=== PATIENT | male | born 1965 | race Caucasian/White ===

== ENCOUNTER 2023-05-04 22:31 | Emergency (ER) | payer MEDICARE, SELFPAY ==
[2023-05-04 22:34] VITALS: BP 144/78
[2023-05-04 22:39] VITALS: BP 144/78
[2023-05-04] MEDS: KEPPRA 1500 MG IV (22:57)
[2023-05-04 22:59] LABS: Hemoglobin 12.3 g/dL (13.0-18.0); Mean Corp Hgb Conc. 35.1 g/dL (33.0-37.0); Mean Corpuscular Hgb 33.8 pg (27.0-31.0); Mean Corpuscular Volume 96.2 fL (80.0-94.0); Mean Platelet Volume 8.8 fL (7.4-10.4); Platelet Count 198 10^3/uL (130-400); Red Blood Cell Count 3.64 10^6/uL (4.70-6.10); Red Cell Dist. Width 14.1 % (11.5-14.5); White Blood Cell Count 7.8 10^3/uL (4.8-10.8)
[2023-05-04 23:00] VITALS: BP 132/60
--- NOTE | 2023-05-04 23:15 | ED.GENMED ---
History of Present Illness
General
Chief Complaint: Seizure
Source: patient
Exam Limitations: none
Time Seen by Provider: 05/04/23 22:45
Nursing documentation reviewed up to this point in time: agreed with
Travel History
Have you had any contact with someone who has COVID-19?: No
Do you have any symptoms of coronavirus? Fever > 100 degrees, chills, cough, shortness of breath, sore throat, loss of taste or smell, muscle aches, or headache?: No
History of Present Illness
History of Present Illness:
57-year-old male ESRD prior seizure admits to being noncompliant with his seizure meds presents with 35-second to 45-second witnessed seizure with urinary incontinence Valium by EMS here he is postictal wants to go home tells me he drives despite
being told not to drive he got a waiver from his PCP, tells me if we take his license he will continue to drive he begrudgingly will take some seizure meds here, will also do some blood work had no fever no headache no falls he believes that they
take too much fluid off hemodialysis
Past History
Past History
ED Past Medical History: CHF, HTN, Hypercholesterolemia, Valvular disease and Other (ESRD)
ED Past Surgical History: Appendectomy and Cardiac (Thoracic AA Repair; aortic valve replacement, aortic root repair and replacement)
Social History
Tobacco: Former smoker
Alcohol: Occasional
Drug: None
Personal:
Living: with family
Employment: Employed
Family History
Family History: Early CAD (father with CA at 50)
Review of Systems
Review of Systems
All Other Systems: Not applicable
Constitutional: Denies fever or fatigue
Respiratory: Reports no symptoms
Cardiac: Reports no symptoms
ABD/GI: Reports no symptoms
: Reports no symptoms
Musculoskeletal: Reports no symptoms
Skin: Reports no symptoms
Neurological: Reports other (Seizure)
Endocrine: Reports no symptoms
Hematologic/Lymphatic: Reports no symptoms
Phy Exam
Physical Exam
Physical Exam:
Physical Exam
General: 57 male postictal slightly confrontational but redirectable
Neck: No photophobia no tongue
Heart: Regular
Lungs: no acute respiratory distress. clear bilaterally
Neuro: alert and oriented. no focal neurological deficits moves all extremities
Skin: no rash
Psychiatric: Confrontational, redirectable more or less cooperative
Extremities: no edema.
Course
Orders/Labs/Results
Orders:
Orders
05/04/23 22:53
Levetiracetam Injectable [Keppra] 1,500 mg IV NOW STA
05/04/23 22:54
Complete Blood Count/No Diff Urgent
Comprehensive Metabolic Panel Urgent
Abnormal Lab Results
05/04/23
22:54
RBC 3.64 L 10^6/uL
(4.70-6.10)
Hgb 12.3 L g/dL
(13.0-18.0)
Hct 35.0 L %
(39.0-52.0)
MCV 96.2 H fL
(80.0-94.0)
MCH 33.8 H pg
(27.0-31.0)
Chloride 93 L mmol/L
(98-107)
Carbon Dioxide 34 H mmol/L
(22-30)
BUN 30 H mg/dl
(9-20)
Creatinine 6.9 H* mg/dL
(0.7-1.3)
Glucose 119 H mg/dl
(70-99)
05/04/23 22:54
05/04/23 22:54
Vital Signs
Initial and Last Documented VS:
Initial Vital Signs
Pulse Resp BP
107 23 144/78
05/04/23 22:34 05/04/23 22:34 05/04/23 22:34
Last Documented Vital Signs
Temp Pulse Resp BP Pulse Ox
98.9 F 94 19 132/60 92
05/04/23 22:39 05/04/23 23:45 05/04/23 23:30 05/04/23 23:00 05/04/23 23:45
MDM/Problems Addressed
Differential Diagnosis Includes:
Seizure disorder in a patient with known seizure med noncompliance electrolyte abnormality no fever mental status is clear no focality neuroexam
MDM/Problems Addressed:
Seizure
Chronic conditions affecting care:
Seizure ESRD
Acute Exacerbation and/or Progression of Chronic Illness:
Seizure ESRD
*Critical Care Note
Total Time (30-74mins, 75-104mins- exclusive of procedures): Not Applicable
Update Note
Update Note:
12:30 AM patient resting comfortably no further seizure activity labs are noted patient is convinced that his seizures are related to fluid coming off the dialysis
Long conversation with patient about importance of taking his antiepileptic meds, he will consider his is with him she is trying encouraged him as well states he has at home, patient told that he should not be driving,
ED Attending Note
-
Portions of this chart may have been created with voice recognition software.� Occasional wrong word or��sound alike� substitutions may have occurred due to the inherent limitations of voice recognition software.
Discharge Plan
Departure
Patient Disposition: Home (Routine Discharge)
Date of Disposition: 05/05/23
Time of Disposition: 00:28
Patient with high blood pressure during this ER visit?: No
Condition: Good
Discharge Problem:
Seizure
Instructions: Seizures, Adult (DC)
Prescriptions:
No Action
famotidine [Pepcid AC] 10 MG tablet
10 mg PO DAILY PRN (Reason: Gastrointestinal issue)
aspirin 81 MG tablet,delayed release (DR/EC)
81 mg PO DAILY
metoprolol succinate 25 MG tablet extended release 24 hr
25 mg PO DAILY 0RF
furosemide 40 mg Tablet
40 mg PO SUTUTHSA
warfarin 7.5 mg tablet
7 mg PO QPM
sevelamer carbonate 800 mg tablet
1,600 mg PO MEALS
levetiracetam [Keppra] 500 mg tablet
500 mg PO BID Qty: 60 0RF
rosuvastatin 10 mg tablet
20 mg PO QPM
Referrals:
Jose Clay MD [Family Provider] - Next open appointment
Activity Restrictions/Additional Instructions:
Take your seizure meds Keppra as previously prescribed
Interventions
Interventions:
*Risk Screen - Suicide Last Done: 05/04/23 22:39
*General Assessment Last Done: 05/04/23 22:39
*Neglect/Abuse Screening Last Done: 05/04/23 22:39
ED- Fall Risk Assessment Last Done: 05/04/23 22:43
*ED COVID-19 Vaccine History Last Done: 05/04/23 22:39
ED- Cardiac Assessment Last Done: 05/04/23 23:24
ED- Neurological Assessment Last Done: 05/04/23 23:24
ED- Pulmonary Assessment Last Done: 05/04/23 23:24
[2023-05-04 23:29] LABS: ALT (SGPT) 32 U/L (0-50); AST (SGOT) 38 U/L (17-59); Albumin 4.6 g/dl (3.5-5.0); Alkaline Phosphatase 98 U/L (38-126); Blood Urea Nitrogen 30 mg/dl (9-20); Calcium 9.4 mg/dl (8.4-10.2); Carbon Dioxide 34 mmol/L (22-30); Estimated Creatinine Clearance 15 ml/min; Glucose 119 mg/dl (70-99); Total Bilirubin 0.7 mg/dl (0.2-1.3); Total Protein 7.3 g/dl (6.3-8.2); eGFR 8.65
[2023-05-04 23:41] LABS: Chloride 93 mmol/L (98-107); Potassium 4.1 mmol/L (3.5-5.1); Sodium 135 mmol/L (135-145)
[2023-05-05] VITALS: BP 130/91
[2023-05-05 00:33] VITALS: BP 123/81
== END 2023-05-05 00:49 | disposition home or self-care (01) ==
LOC: EMR 22:31
PROVIDERS: EMERGENCY PHYSICIAN Emergency Medicine; FAMILY PHYSICIAN Family Medicine
DX: G40.909 Epilepsy, unspecified, not intractable, without status epilepticus (principal); R32 Unspecified urinary incontinence; I13.2 Hypertensive heart and chronic kidney disease with heart failure and with stage 5 chronic kidney disease, or end stage renal disease; I50.9 Heart failure, unspecified; E87.8 Other disorders of electrolyte and fluid balance, not elsewhere classified; N18.6 End stage renal disease; Z99.2 Dependence on renal dialysis; Z91.148 Patient's other noncompliance with medication regimen for other reason; E78.00 Pure hypercholesterolemia, unspecified; Z95.2 Presence of prosthetic heart valve; Z87.891 Personal history of nicotine dependence; Z79.82 Long term (current) use of aspirin; Z79.01 Long term (current) use of anticoagulants
CPT/HCPCS: 99284; 96374; 80053; 85027

== ENCOUNTER → 2023-05-26 13:24 | Outpatient (REF) | payer MEDICARE, SELFPAY | LOC: HWRCS 13:24 | PROVIDERS: ATTENDING PHYSICIAN Nurse Practitioner Adult Health | DX: I45.10 Unspecified right bundle-branch block (principal) | CPT/HCPCS: 93306 ==

== ENCOUNTER → 2023-08-13 12:14 | Outpatient (REF) | payer MEDICARE, SELFPAY | LOC: DHCBC/DCA 12:14 | PROVIDERS: ATTENDING PHYSICIAN Internal Medicine Cardiovascular Disease; FAMILY PHYSICIAN Family Medicine | DX: Z01.810 Encounter for preprocedural cardiovascular examination (principal); R94.31 Abnormal electrocardiogram [ECG] [EKG] | CPT/HCPCS: 78452; 93017; A9500; J2785 ==

== ENCOUNTER 2024-08-18 19:52 | Emergency (ER) | payer MEDICARE, SELFPAY ==
[2024-08-18 20:01] VITALS: BP 132/90
[2024-08-18 20:27] LABS: % Immature Granulocytes 0.3 % (0-0.5); % Lymphocytes 20.3 % (20.5-51.1); % Monocytes 11.5 % (1.7-9.3); % Neutrophils 63.9 % (42.2-75.2); Absolute Basophils 0.1 10^3/uL (0-0.2); Absolute Eosinophils 0.2 10^3/uL (0-0.7); Absolute Lymphocytes 1.4 10^3/uL (1.2-3.4); Absolute Monocytes 0.8 10^3/uL (0.1-0.6); Absolute Neutrophils 4.5 10^3/uL (1.4-6.5); Hematocrit 35.5 % (39.0-52.0); Hemoglobin 12.3 g/dL (13.0-18.0); Mean Corp Hgb Conc. 34.6 g/dL (33.0-37.0); Mean Corpuscular Hgb 33.5 pg (27.0-31.0); Mean Corpuscular Volume 96.7 fL (80.0-94.0); Mean Platelet Volume 9.7 fL (7.4-10.4); Nucleated Red Blood Cells % 0 % (-); Platelet Count 181 10^3/uL (130-400); Red Blood Cell Count 3.67 10^6/uL (4.70-6.10); Red Cell Dist. Width 14.6 % (11.5-14.5)
[2024-08-18 20:39] LABS: COVID-19 Antigen Negative (Negative)
[2024-08-18 20:47] LABS: NT-proBNP 6580 pg/ml
[2024-08-18 20:54] LABS: ALT (SGPT) 30 U/L (0-50); AST (SGOT) 29 U/L (17-59); Albumin 4.6 g/dl (3.5-5.0); Alkaline Phosphatase 74 U/L (38-126); Blood Urea Nitrogen 53 mg/dl (9-20); Calcium 9.6 mg/dl (8.4-10.2); Carbon Dioxide 30 mmol/L (22-30); Chloride 96 mmol/L (98-107); Glucose 108 mg/dl (70-99); Potassium 3.7 mmol/L (3.5-5.1); Sodium 139 mmol/L (135-145); Total Bilirubin 0.7 mg/dl (0.2-1.3); Total Protein 6.8 g/dl (6.3-8.2)
[2024-08-18 21:42] VITALS: BMI 38.9
[2024-08-18 21:45] VITALS: BP 141/78
[2024-08-18 22:00] VITALS: BP 135/88
[2024-08-18] MEDS: AMOXIL 500 MG PO (22:14)
[2024-08-18] MEDS: DUONEB 3 ML INH (22:14)
--- NOTE | 2024-08-18 22:21 | ED.GENMED ---
History of Present Illness
General
Chief Complaint: Breathing Problem
Source: patient, family, previous radiology exam and previous hospital records
Exam Limitations: none
Time Seen by Provider: 08/18/24 21:16
Nursing documentation reviewed up to this point in time: agreed with
History of Present Illness
History of Present Illness:
58-year-old male multiple chronic medical conditions most notably end-stage renal disease on home diet hemodialysis, 4 days a week he has had some sinus congestion thought he had the flu some cough, no productive sputum no documented fever no
rigors, believes his dry weight may be up a little bit, he does still make urine, no sick contacts, states at home dialysis which has been on for few months has been tough for than 3 days a week hemodialysis, no leg edema,
Past History
Past History
ED Past Medical History: CHF, HTN, Hypercholesterolemia, Valvular disease and Other (ESRD)
ED Past Surgical History: Appendectomy and Cardiac (Thoracic AA Repair; aortic valve replacement, aortic root repair and replacement)
Social History
Tobacco: Former smoker
Alcohol: Occasional
Drug: None
Personal:
Living: with family
Employment: Employed
Family History
Family History: Early CAD (father with AL at 50)
Review of Systems
Review of Systems
All Other Systems: ROS reviewed and negative except as documented in HPI and ROS
Constitutional: Reports fatigue; Denies fever
EENT: Reports runny nose and other (Congestion)
Respiratory: Reports cough and trouble breathing
Cardiac: Denies chest pain
ABD/GI: Denies abdominal pain
: Reports no symptoms
Musculoskeletal: Reports no symptoms
Neurological: Reports weakness
Hematologic/Lymphatic: Reports no symptoms
Psychiatric: Reports no symptoms
Phy Exam
Physical Exam
Physical Exam:
Physical Exam
General: no apparent distress, not acutely ill
Neck: Nasally voice
Heart: s1/s2 regular rate and rhythm, no murmur. equal radial pulses.
Lungs: Expiratory wheeze
Abdomen: Not tender
Neuro: alert and oriented. no focal neurological deficits
Skin: no rash
Psychiatric: well kept. interactive and cooperative
Extremities: no edema. no calf tenderness
Course
Orders/Labs/Results
Orders:
Orders
08/18/24 20:10
Chest [CR Chest - 2 Views ] Urgent
Comment:
Reason For Exam: SOB
08/18/24 20:19
COVID-19 Antigen Urgent
Source: Nasal Swab
Complete Blood Count/With Diff Urgent
Comprehensive Metabolic Panel Urgent
NT-proBNP Urgent
Influenza A+B Rapid Molecular Urgent
DAV Source: Nasal Swab
Specimen Description:
08/18/24 22:03
Amoxicillin [Amoxil] 500 mg PO NOW STA
Ipratropium/Albuterol Sulfate [Duoneb] 3 ml INH R NOW STA
Abnormal Lab Results
08/18/24
20:19
RBC 3.67 L 10^6/uL
(4.70-6.10)
Hgb 12.3 L g/dL
(13.0-18.0)
Hct 35.5 L %
(39.0-52.0)
MCV 96.7 H fL
(80.0-94.0)
MCH 33.5 H pg
(27.0-31.0)
RDW 14.6 H %
(11.5-14.5)
Absolute Monos (auto) 0.8 H 10^3/uL
(0.1-0.6)
Lymphocytes % 20.3 L %
(20.5-51.1)
Monocytes % 11.5 H %
(1.7-9.3)
Chloride 96 L mmol/L
(98-107)
BUN 53 H mg/dl
(9-20)
Creatinine 8.6 H* mg/dL
(0.7-1.3)
Glucose 108 H mg/dl
(70-99)
08/18/24 20:19
08/18/24 20:19
Vital Signs
Initial and Last Documented VS:
Initial Vital Signs
Temp Pulse Resp BP Pulse Ox
98.7 F 71 18 132/90 95
08/18/24 20:01 08/18/24 20:01 08/18/24 20:01 08/18/24 20:01 08/18/24 20:01
Last Documented Vital Signs
Temp Pulse Resp BP Pulse Ox
98.7 F 66 15 141/78 96
08/18/24 20:01 08/18/24 21:45 08/18/24 21:45 08/18/24 21:45 08/18/24 21:45
MDM/Problems Addressed
Differential Diagnosis Includes:
URI pneumonia viral syndrome doubt PE no dysuria frequent
MDM/Problems Addressed:
Cough congestion
Chronic conditions affecting care: Kidney disease
Acute Exacerbation and/or Progression of Chronic Illness: Neurological disorder
*Radiology
Radiology exam reviewed: radiology read reviewed
*Pulse Oximetry
Patient hypoxic: no
*EKG
Interpreted by ED Provider?: Yes
Interpretation: normal
Comparison EKG: no comparison EKG present
Heart Rate: 78
Rate: normal
Ischemia: non-specific ST changes
*[employer] Interpretation
Rate: normal
Interpretation: normal
Heart Rate: 78
Rhythm: sinus
*Critical Care Note
Total Time (30-74mins, 75-104mins- exclusive of procedures): Not Applicable
Data Reviewed
Review of Other/Old Records Reveals: Labs
Source: patient
ED Attending Note
-
Portions of this chart may have been created with voice recognition software.� Occasional wrong word or��sound alike� substitutions may have occurred due to the inherent limitations of voice recognition software.
Discharge Plan
Departure
Patient Disposition: Home (Routine Discharge)
Date of Disposition: 08/18/24
Time of Disposition: 22:19
Patient with high blood pressure during this ER visit?: No
Condition: Good
Discharge Problem:
SOB (shortness of breath), Acute bronchitis
Instructions: Acute Bronchitis, Adult (DC), Shortness of Breath (Dyspnea) (DC)
Prescriptions:
New
amoxicillin 500 mg capsule
500 mg PO Q8H Qty: 30 0RF
albuterol sulfate 90 mcg/actuation HFA aerosol inhaler
2 puff inhalation QID PRN (Reason: shortness of breath or wheezing) Qty: 8.5 0RF
No Action
famotidine [Pepcid AC] 10 MG tablet
10 mg PO DAILYPRN PRN (Reason: Gastrointestinal issue)
aspirin 81 MG tablet,delayed release (DR/EC)
81 mg PO DAILY
furosemide 40 mg Tablet
40 mg PO DAILY
sevelamer carbonate 800 mg tablet
1,600 mg PO MEALS
levetiracetam [Keppra] 500 mg tablet
500 mg PO BID Qty: 60 0RF
calcitriol 0.5 mcg Capsule
0.5 mcg PO DAILY
warfarin 2 mg Tablet
8 mg PO QPM
metoprolol succinate [Toprol XL] 25 mg Tablet Extended Release 24 Hr
12.5 mg PO SUMOWEFR@1900
cinacalcet 30 mg Tablet
30 mg PO QPM
metoprolol succinate 25 MG tablet extended release 24 hr
12.5 mg PO TUTHSA@0800
Referrals:
Jose Clay MD [Family Provider] - Next open appointment
Leoncio Crews DO [Active] - Next open appointment
Interventions
Interventions:
*Risk Screen - Suicide Last Done: 08/18/24 20:01
*General Assessment Last Done: 08/18/24 20:01
*Neglect/Abuse Screening Last Done: 08/18/24 20:01
*ED- Fall Risk Assessment Last Done: 08/18/24 20:01
*ED COVID-19 Vaccine History Last Done: 08/18/24 20:01
ED- Cardiac Assessment Last Done: 08/18/24 21:51
ED- Pulmonary Assessment Last Done: 08/18/24 21:51
Discharge Date and Time
Print Language: GUINEAN
== END 2024-08-18 22:49 | disposition home or self-care (01) ==
LOC: EMR 19:52
PROVIDERS: EMERGENCY PHYSICIAN Emergency Medicine; FAMILY PHYSICIAN Family Medicine
DX: J20.9 Acute bronchitis, unspecified (principal); I13.2 Hypertensive heart and chronic kidney disease with heart failure and with stage 5 chronic kidney disease, or end stage renal disease; I50.9 Heart failure, unspecified; N18.6 End stage renal disease; Z99.2 Dependence on renal dialysis; E78.00 Pure hypercholesterolemia, unspecified; Z87.891 Personal history of nicotine dependence; Z95.2 Presence of prosthetic heart valve; Z90.49 Acquired absence of other specified parts of digestive tract; Z11.52 Encounter for screening for COVID-19
CPT/HCPCS: 94640; 99285; 71046; 80053; 83880; 85025; 87502; 87811; 93005

== ENCOUNTER 2024-10-13 16:50 | Emergency (ER) | payer MEDICARE, SELFPAY ==
[2024-10-13] VITALS (9 sets, daily range): BP systolic 97–138; BP diastolic 65–94; PULSE 75–97; BMI 36.9
[2024-10-13 18:14] LABS: Hematocrit 36.4 % (39.0-52.0); Hemoglobin 12.2 g/dL (13.0-18.0); Mean Corp Hgb Conc. 33.5 g/dL (33.0-37.0); Mean Corpuscular Volume 98.9 fL (80.0-94.0); Nucleated Red Blood Cells % 0 % (-); Platelet Count 183 10^3/uL (130-400); Red Cell Dist. Width 14.0 % (11.5-14.5)
[2024-10-13 18:48] LABS: Troponin I 0.055 ng/ml
[2024-10-13 18:49] LABS: ALT (SGPT) 22 U/L (0-50); AST (SGOT) 22 U/L (17-59); Albumin 4.5 g/dl (3.5-5.0); Alkaline Phosphatase 66 U/L (38-126); Blood Urea Nitrogen 37 mg/dl (9-20); Calcium 9.8 mg/dl (8.4-10.2); Carbon Dioxide 29 mmol/L (22-30); Chloride 101 mmol/L (98-107); Estimated Creatinine Clearance 13 ml/min; Glucose 85 mg/dl (70-99); Potassium 3.8 mmol/L (3.5-5.1); Sodium 139 mmol/L (135-145); Total Protein 6.9 g/dl (6.3-8.2); eGFR 6.84
[2024-10-13] MEDS: NSS 250 IV (19:18)
[2024-10-13] MEDS: TYLENOL 1000 MG PO (19:36)
--- NOTE | 2024-10-13 21:53 | ED.GENMED ---
History of Present Illness
General
Chief Complaint: Dizziness
Source: patient
Exam Limitations: none
Time Seen by Provider: 10/13/24 17:50
Nursing documentation reviewed up to this point in time: agreed with
History of Present Illness
History of Present Illness:
Pt with sig. medical history, including ESRD on HD (M,W,F), presents to ED secondary to recurrent dizziness with shortness of breath which he had been experiencing over the past month. Pt has been evaluated by multiple physicians and stress echo
test has been ordered for next month. Today, patient states that he had been up since 4am and did quite a bit of physically exertional activities without having had much to eat or drink. And patient is already on fluid restriction due to his renal
disease and CHF. Denies chest pain or palpitations. Denies nausea/vomiting. Denies fever. Denies recent illness. Denies recent travel or surgery. Denies recent change in medications or diet. Pt reports having received full dialysis session
yesterday. In addition, during dialysis session yesterday, his HR was noted to go down as low as 40s-50s. However, at that time, patient states that he did not experience dizziness nor sob.
Past History
Past History
ED Past Medical History: CHF, HTN, Hypercholesterolemia, Valvular disease and Other (ESRD)
ED Past Surgical History: Appendectomy and Cardiac (Thoracic AA Repair; aortic valve replacement, aortic root repair and replacement)
Social History
Tobacco: Former smoker
Alcohol: Occasional
Drug: None
Personal:
Living: with family
Employment: Employed
Family History
Family History: Early CAD (father with [place] at 50)
Review of Systems
Review of Systems
Allergies reviewed?: Yes
All Other Systems: ROS reviewed and negative except as documented in HPI and ROS
Constitutional: Reports no symptoms
Respiratory: Reports trouble breathing
Cardiac: Reports no symptoms
ABD/GI: Reports no symptoms
Musculoskeletal: Reports no symptoms
Skin: Reports no symptoms
Neurological: Reports dizzy
Phy Exam
Physical Exam
Physical Exam:
General: well nourished male, in no acute distress. afebrile
Heent: nc/at. eomi
Lungs: cta
Heart: rrr. no murmur
Abd: soft and nontender
Neuro: aao x 3. no focal neurological deficit
Skin: no rash
Ext: b/l LE edema, pitting. no calf tenderness
Psych: pleasant and cooperative
Course
Orders/Labs/Results
Orders:
Orders
10/13/24 16:51
Electrocardiogram (*1) Urgent
Reason for Study: Chest Pain
EKG- Treatment ONCE
10/13/24 17:46
Cardiac Monitoring- Treatment ONCE
IV Insert/Care/Rem.- Treatment PRN
10/13/24 18:00
Complete Blood Count/With Diff Urgent
Comprehensive Metabolic Panel Urgent
Pro-BNP [NT-proBNP] Urgent
Troponin I Urgent
10/13/24 18:24
Orthostatic VS- Treatment ONCE
10/13/24 19:04
0.9% Sodium Chloride 250 ml [Nss] 250 ml IV BOLUS
10/13/24 19:31
Acetaminophen [Tylenol] 1,000 mg PO NOW STA
Abnormal Lab Results
10/13/24
18:00
RBC 3.68 L 10^6/uL
(4.70-6.10)
Hgb 12.2 L g/dL
(13.0-18.0)
Hct 36.4 L %
(39.0-52.0)
MCV 98.9 H fL
(80.0-94.0)
MCH 33.2 H pg
(27.0-31.0)
Absolute Monos (auto) 0.7 H 10^3/uL
(0.1-0.6)
Monocytes % 11.5 H %
(1.7-9.3)
BUN 37 H mg/dl
(9-20)
Creatinine 8.3 H* mg/dL
(0.7-1.3)
Troponin I 0.055 H* ng/ml
10/13/24 18:00
10/13/24 18:00
Vital Signs
Initial and Last Documented VS:
Initial Vital Signs
Temp Pulse Resp BP Pulse Ox
98.5 F 64 18 117/65 98
10/13/24 17:01 10/13/24 17:01 10/13/24 17:01 10/13/24 17:01 10/13/24 17:01
Last Documented Vital Signs
Temp Pulse Resp BP Pulse Ox
98.5 F 73 20 103/65 94
10/13/24 17:01 10/13/24 21:45 10/13/24 21:45 10/13/24 21:00 10/13/24 21:54
MDM/Problems Addressed
MDM/Problems Addressed:
Blood work reviewed, including chronically elevated troponin due to CRI, and discussed with patient and his spouse. Despite patient's chronic illness, today's episode appears to be related to overexertion and mild dehydration. As such, patient given
250ml ivf and observed further without any episodes of similar symptoms. Afterwards, pt's orthostatic vital signs checked. Pt also able to ambulate independently with steady gait without any dizziness or sob. Patient requesting to be discharged home
at this time. Informed patient and spouse that he must rest over the weekend minimize any exertional activities along with close f/u with his pmd/leather coverer for continual evaluation and treatment. Pt expressed understanding at time of discharge.
*Pulse Oximetry
SaO2: 94
Oxygen Mode of Delivery: Room air
Patient hypoxic: no
*Critical Care Note
Total Time (30-74mins, 75-104mins- exclusive of procedures): Not Applicable
ED Attending Note
-
Portions of this chart may have been created with voice recognition software.� Occasional wrong word or��sound alike� substitutions may have occurred due to the inherent limitations of voice recognition software.
Discharge Plan
Departure
Patient Disposition: Home (Routine Discharge)
Date of Disposition: 10/13/24
Time of Disposition: 21:55
Patient with high blood pressure during this ER visit?: No
Condition: Good
Discharge Problem:
Dizziness
Instructions: Dizziness
Prescriptions:
No Action
aspirin 81 MG tablet,delayed release (DR/EC)
81 mg PO DAILY
furosemide 40 mg Tablet
40 mg PO DAILY
sevelamer carbonate 800 mg tablet
1,600 mg PO MEALS
levetiracetam [Keppra] 500 mg tablet
500 mg PO BID Qty: 60 0RF
calcitriol 0.5 mcg Capsule
0.5 mcg PO QPM
metoprolol succinate [Toprol XL] 25 mg Tablet Extended Release 24 Hr
12.5 mg PO DAILY
famotidine [Pepcid AC] 10 mg Tablet
10 mg PO DAILY
acetaminophen [Tylenol Extra Strength] 500 mg Tablet
1,500 mg PO DAILYPRN PRN (Reason: mild pain)
warfarin 5 mg Tablet
5 mg PO QPM
Rx Instructions:
10/13/2024, take w/ 1.5 mg for a total of 6.5 mg.
warfarin 1 mg Tablet
1.5 mg PO QPM
Rx Instructions:
10/13/2024, take w/ 5 mg for a total of 6.5 mg.
rosuvastatin 20 mg Tablet
20 mg PO QPM
albuterol sulfate 90 mcg/actuation HFA aerosol inhaler
2 puff inhalation R QIDPRN PRN (Reason: shortness of breath or wheezing)
Referrals:
Jose Clay MD [Family Provider, Family Practice]
Activity Restrictions/Additional Instructions:
As discussed, please follow-up with your primary care physician and leather coverer for continual evaluation and treatment.
Interventions
Interventions:
*Risk Screen - Suicide Last Done: 10/13/24 18:05
*General Assessment Last Done: 10/13/24 18:05
*Neglect/Abuse Screening Last Done: 10/13/24 18:05
*ED- Fall Risk Assessment Last Done: 10/13/24 18:05
*ED COVID-19 Vaccine History Last Done: 10/13/24 18:05
*Nursing Disposition Last Done: 10/13/24 22:05
ED- Neurological Assessment Last Done: 10/13/24 18:44
ED Swallowing Screen Last Done: 10/13/24 18:44
Discharge Date and Time
Discharge Date/Time: 10/13/24 22:06
Print Language: TURKISH
== END 2024-10-13 22:06 | disposition home or self-care (01) ==
LOC: EMR 16:50
PROVIDERS: EMERGENCY PHYSICIAN Emergency Medicine; FAMILY PHYSICIAN Family Medicine
DX: R42 Dizziness and giddiness (principal); N18.6 End stage renal disease; Z87.891 Personal history of nicotine dependence; I13.2 Hypertensive heart and chronic kidney disease with heart failure and with stage 5 chronic kidney disease, or end stage renal disease; I50.9 Heart failure, unspecified; Z99.2 Dependence on renal dialysis
CPT/HCPCS: 99284; 80053; 83880; 84484; 85025; 93005

== ENCOUNTER → 2024-11-15 14:22 | Outpatient (REF) | payer MEDICARE, SELFPAY | LOC: RCS 14:22 | PROVIDERS: ATTENDING PHYSICIAN Nurse Practitioner; FAMILY PHYSICIAN Family Medicine | DX: I35.8 Other nonrheumatic aortic valve disorders (principal) | CPT/HCPCS: 93306 ==